=== PATIENT | male | born 1950 | race Caucasian/White ===

== ENCOUNTER → 2017-08-16 | Outpatient (CLI) | payer MEDICARE, OTHER ==
[~2017-08-16] MED LIST: ALBU90OI INH; AMLO10 PO; ASPI325 PO; CALCA500CH PO; CHOL10002 PO; FURO40 PO; INSULANPEN SC; LACT10SY PO; MAGOXI400 PO; METO25 PO; MULVITMIND PO; OXYC15ER PO; OXYC5 PO; POTCHL10ER PO; PRED10 PO; Prinivil10 MG PO; ROSI2; SIRO1 PO; SPIR25 PO; VENL25; VENL75ER PO
== END ==
LOC: PLD 07:58 → LAB SHORT 07:58
DX: D48.5 Neoplasm of uncertain behavior of skin (principal); D04.61 Carcinoma in situ of skin of right upper limb, including shoulder; L57.0 Actinic keratosis
CPT/HCPCS: 88305